=== PATIENT | female | born 1940 | race Caucasian/White ===

== ENCOUNTER 2016-11-02 06:31 | Day surgery (SDC) | payer MEDICARE, BC ==
[~2016-11-02 06:31] MED LIST: Lactated Ringers 1,000 ML IV SCH
[2016-11-02] MEDS ORDERED: fentaNYL 100 MCG/2 ML SDV ONE (07:44)
[2016-11-02] MEDS ORDERED: Propofol 200 MG/20 ML SDV ONE (07:46)
[2016-11-02 09:16] VITALS: BP 135/77
--- NOTE | 2016-11-02 13:46 | OR ---
DATE OF PROCEDURE: 11/02/2016 POSTOPERATIVE DIAGNOSES: History of adenomatous colon polyp. POSTOP DIAGNOSIS: Unremarkable colonoscopy, history of adenomatous colon polyp. PROCEDURE: Colonoscopy to the cecum. ANESTHESIA: IV anesthesia with monitored anesthesia care. INDICATIONS: This 76-year-old white female is referred for a colonoscopy because of a history of an adenomatous colon polyp. Her last colonoscopic exam was done 3 years ago. I counseled her for the procedure including risks and alternatives, and she gave her informed consent to proceed. DESCRIPTION OF PROCEDURE: The patient was placed in the left lateral decubitus position. IV anesthesia was administered by the Anesthesia Service. Time-out was held. A rectal exam was performed, which was unremarkable. The flexible video Olympus colonoscope was introduced through her anus, up her rectum, and out her colon all the way to the cecum. Once the cecum was reached, the scope was slowly withdrawn examining the mucosa throughout. No mucosal abnormalities were noted. The scope was retroflexed in the rectum with the distal rectum appearing unremarkable. The scope was straightened and removed. She tolerated the procedure well. Gaetano Richards MD /[id number]
== END 2016-11-02 09:25 | disposition home or self-care (01) ==
LOC: JP.SDS 06:31
PROVIDERS: ATTEND Surgery
DX: Z12.11 Encounter for screening for malignant neoplasm of colon (principal); Z79.82 Long term (current) use of aspirin; Z79.899 Other long term (current) drug therapy
CPT/HCPCS: G0105; J2704; J3010; J7120

== ENCOUNTER 2021-02-07 06:21 | Day surgery (SDC) | payer MEDICARE ==
[2021-02-07] MEDS ORDERED: Sodium Chloride 0.9% 1,000 ML IV SCH (07:00)
[2021-02-07] MEDS ORDERED: fentaNYL 100 MCG/2 ML SDV ONE (07:30)
[2021-02-07] MEDS ORDERED: Propofol 200 MG/20 ML SDV ONE (07:30)
[2021-02-07 09:49] VITALS: BP 126/67; PULSE 67
--- NOTE | 2021-02-07 11:37 | OR ---
DATE OF PROCEDURE: 02/07/2021 SURGEON: Juan Ramon Abreu MD PROCEDURE: Colonoscopy. FINDINGS: Diverticula x1. COMPLICATIONS: None. ACTUARIAL MATHEMATICIAN: None. ANESTHESIA: MAC. PREOPERATIVE DIAGNOSIS: Screening colonoscopy. POSTOPERATIVE DIAGNOSIS: Screening colonoscopy. RISKS: Risks, benefits, alternatives, and limitations including, but not limited to infection, bleeding, perforation, false positives, and false negatives were explained to the patient and she wished to proceed. PROCEDURE IN DETAIL: The patient was placed in left lateral decubitus position. Digital rectal exam was performed without abnormality. Scope was introduced and advanced atraumatically to the ileocecal valve. A photo was taken of this. Scope was brought back to the ascending, transverse, descending colon, and retroflexed. No evidence of old or new blood. No masses. No polyps. One diverticula without evidence of diverticulitis or bleeding. No abnormalities on retroflexion. Greater than 8 minutes was spent removing the scope. Prep was acceptable, it was marginal with approximately 85% to 90% of the luminal surface could be seen. The patient tolerated the procedure well. Juan Ramon Abreu MD /[id number]
== END 2021-02-07 09:30 | disposition home or self-care (01) ==
LOC: JP.SDS 06:21
PROVIDERS: ATTEND Surgery
DX: Z12.11 Encounter for screening for malignant neoplasm of colon (principal); K57.30 Diverticulosis of large intestine without perforation or abscess without bleeding
CPT/HCPCS: G0121; J2704; J3010; J7030